=== PATIENT | male | born 1980 | race Caucasian/White ===

== ENCOUNTER 2018-03-02 20:19 | Outpatient (CLI) | payer MEDICAID | END 2018-03-02 20:20 | disposition EMS.NT | LOC: EMS 20:19 | PROVIDERS: ATTEND Surgery | DX: R45.89 Other symptoms and signs involving emotional state (principal) ==

== ENCOUNTER 2020-08-18 17:43 | Emergency (ER) | payer MEDICAID ==
--- OUTSIDE RECORDS SUMMARY | 2020-08-18 17:46 | EXTERNAL MEDICAL SUMMARY RPT | Continuity of Care Document ---
:1980 Demographics Phone Unavailable Preferred Language Amharic Marital Status Unknown Islam Affiliation Unknown Race Unknown Ethnic Group Unknown Author Organization [facility] Address [address] [phone] Phone Care Team Providers Name Role Phone Rambo Unavailable Unavailable Horras Unavailable Unavailable Medications date description facility 20200702 gabapentin 800 MG Oral Tablet [facility] ospital 20200702 gabapentin 100 MG Oral Capsule [facility] [id number] gabapentin 300 MG Oral Capsule [facility] 20200527 Prednisone 10 MG Oral Tablet [facility] spital Problems date description facility 20200702 Post-traumatic stress disorder, unspeci fied [facility] 20200702 Other specified anxiety disorders [facility] 20200702 Low back pain [facility] Procedures date description facility 20200702 [facility] 20200630 [facility] [id number] [facility] Vital Signs date measurement value source 20200527 weight_standard 269.98 lb 20200527 weight_metric 122.46 kg 20200527 temperature_standard 98.5 F 20200527 temperature_metric 36.94 C [id number] respiration_rate 16 /min [id number] height_standard 73 in [id number] height_metric 185.42 cm [id number] heart_rate 74 /min [id number] BP_systolic 133 mm[Hg] 80665980 BP_diastolic 87 mm[Hg] [id number] BMI 35.6 kg/m2 20200702 weight_standard 129.05 lb 20200702 weight_metric 58.53 kg 20200702 temperature_standard 98 F 20200702 temperature_metric 36.67 C 20200702 respiration_rate 16 /min 20200702 height_standard 73 in 20200702 height_metric 185.42 cm 20200702 heart_rate 75 /min 20200702 BP_systolic 120 mm[Hg] 76412375 BP_diastolic 64 mm[Hg] 20200702 BMI 37.5 kg/m2
--- NOTE | 2020-08-18 18:48 | ED Physician Documentation ---
PD HPI NVD - Stated complaint Stated Complaint: BLOODY STOOL/BODY ACHES/CHILLS - Chief complaint Chief Complaint: General - History obtained from History obtained from: Patient - History of Present Illness Timing - onset: How many days ago (2) Timing - duration: Days (2) Timing - details: Gradual onset, Still present Associated symptoms: Loss of appetite, Other (dark tarry stool) Contributing factors: Sick contact, Bad food. No: Recent antibiotics, Alcohol use Improved by: Vomiting Similar symptoms before: Diagnosis (food poisoning) Recently seen: Not recently seen - Additonal information Additional information: 40-year-old male who is on disability for back injury has developed nausea vomiting and diarrhea and has had some black tarry stool out today. When he called the nurse hotline asked him to come to the emergency department. He states that his entire family became ill after eating [place] food 2 nights ago and he became ill the day after and has had 2 days of vomiting and diarrhea. He indicates that prior to this he developed a sore throat with swelling in the back of his throat he continues to have a sore throat has not had fever he does have some muscle aches and pains and he is not immunized against Covid. He states that he stays mostly at home does not believe he has been exposed. He has not had fever. He does have a history of tonsillitis recurrent and following tonsillectomy he had tonsil tissue grow back. Review of Systems Constitutional: reports: Chills, Myalgias, Fatigue. denies: Fever Eyes: denies: Decreased vision Ears: denies: Ear pain Nose: reports: Congestion. denies: Rhinorrhea / runny nose Throat: reports: Sore throat Cardiac: denies: Chest pain / pressure, Palpitations Respiratory: denies: Dyspnea, Cough GI: reports: Abdominal Pain, Nausea, Vomiting, Constipation, Bloody / black stool : denies: Dysuria, Frequency Skin: denies: Rash Musculoskeletal: denies: Neck pain, Back pain, Extremity pain Neurologic: denies: Generalized weakness, Focal weakness, Numbness PD PAST MEDICAL HISTORY - Present Medications Home Medications: Ambulatory Orders Medication Instructions Recorded Confirmed Amox/Clav 875/125 [Augmentin] 1 each PO Q12H #20 tablet 08/18/20 Gabapentin [Neurontin] 300 mg ORAL TID 08/18/20 08/18/20 Ondansetron Odt [Zofran] 4 mg TL Q6H PRN #10 tablet 08/18/20 - Allergies Allergies/Adverse Reactions: Allergies Allergy/AdvReac Type Severity Reaction Status Date / Time No Known Drug Allergies Allergy Verified 08/18/20 17:53 PD ED PE NORMAL - Vitals Vital signs reviewed: Yes (Hypertensive) - General General: Alert and oriented X 3, No acute distress, Well developed/nourished - HEENT HEENT: Atraumatic, PERRL, EOMI, Ears normal, Other (The pharynx shows residual tonsil tissue with crypts with exudate worse on the right than the left and there are pustules over the posterior pharynx with a similar appearance to the tonsillar tissue. 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, No motor deficit, No sensory deficit, Normal speech Eye Opening: Spontaneous Motor: Obeys Commands Verbal: Oriented GCS Score: 15 - Psych Psych: Normal mood, Normal affect Results - Vitals Vitals: Vital Signs - 24 hr 08/18/20 08/18/20 17:54 18:47 Temperature 37.4 C Heart Rate 96 94 Respiratory 18 Rate Blood Pressure 156/76 H 156/101 H O2 Saturation 94 95 Oxygen O2 Source Room air - Labs Labs: Laboratory Tests 08/18/20 08/18/20 08/18/20 18:30 18:50 18:53 WBC 13.6 H RBC 5.10 Hgb 15.3 Hct 45.3 MCV 88.8 MCH 30.0 MCHC 33.8 RDW 12.4 Plt Count 241 MPV 10.7 Neut # (Auto) 10.4 H Lymph # (Auto) 1.5 Comal # (Auto) 1.5 H Eos # (Auto) 0.0 Baso # (Auto) 0.1 Absolute Nucleated RBC 0.00 Band Neuts % (Manual) Not Reportable Abnorm Lymph % (Manual) Not Reportable Nucleated RBC % 0.0 Neutrophils # (Manual) Not Reportable Lymphocytes # (Manual) Not Reportable Monocytes # (Manual) Not Reportable Eosinophils # (Manual) Not Reportable Basophils # (Manual) Not Reportable Differential Comment MANUAL=AUTO DIFF Manual Slide Review Indicated Platelet Estimate NORMAL (130-450,000) Platelet Morphology NORMAL APPEARANCE RBC Morph Micro Appear NORMAL APPEARANCE Sodium Potassium Chloride Carbon Dioxide Anion Gap BUN Creatinine Estimated GFR (MDRD) Glucose Calcium Total Bilirubin AST ALT Alkaline Phosphatase Total Protein Albumin Globulin Albumin/Globulin Ratio Lipase Stl Occult Blood (IFOB) NEGATIVE Group A Strep Rapid Negative 08/18/20 18:53 WBC RBC Hgb Hct MCV MCH MCHC RDW Plt Count MPV Neut # (Auto) Lymph # (Auto) [place] # (Auto) Eos # (Auto) Baso # (Auto) Absolute Nucleated RBC Band Neuts % (Manual) Abnorm Lymph % (Manual) Nucleated RBC % Neutrophils # (Manual) Lymphocytes # (Manual) Monocytes # (Manual) Eosinophils # (Manual) Basophils # (Manual) Differential Comment Manual Slide Review Platelet Estimate Platelet Morphology RBC Morph Micro Appear Sodium 136 Potassium 3.5 Chloride 99 L Carbon Dioxide 26 Anion Gap 11.0 BUN 12 Creatinine 0.9 Estimated GFR (MDRD) 94 Glucose 133 H Calcium 9.0 Total Bilirubin 1.0 AST 17 ALT 26 Alkaline Phosphatase 72 Total Protein 7.8 Albumin 4.5 Globulin 3.3 Albumin/Globulin Ratio 1.4 Lipase 24 Stl Occult Blood (IFOB) Group A Strep Rapid Procedures - IVC sono (time) 1845 Bedside IVC sono: IVC measures (cm) (1.45), IVC collapsed c insp (cm) (0.85), Euvolemia PD MEDICAL DECISION MAKING - ED course Complexity details: reviewed results, re-evaluated patient, considered differential, d/w patient ED course: 40-year-old male on disability for back injury has developed acute nausea vomiting and diarrhea with dark tarry stool and is evaluated here in the emergency department to include blood work and a fit test. In addition to this GI complaint the patient also has a sore throat and he has extensive experience with prior tonsillitis. He has had his tonsils out at age 12 and had tonsil tissue grow back. He has not had such a problem with his tonsils recently but today has exudative tonsillar tissue that is cryptic.He is tested for both strep and Covid. Rapid strep is negative Covid is pending and the patient's electrolytes and blood counts are unremarkable with the exception of a white count of 13.6 thousand. He does have acute tonsillitis has had experience with this previously we will place on a short course of Augmentin. Departure - Departure Disposition: 01 Home, Self Care Clinical Impression: Gastroenteritis, Tonsillitis with exudate Condition: Stable Instructions: ED Gastroenteritis Vs Food Poison, ED Tonsillitis Follow-Up: Your, doctor [Other] Prescriptions: Amox/Clav 875/125 [Augmentin] 1 each PO Q12H #20 tablet Ondansetron Odt [Zofran] 4 mg TL Q6H PRN #10 tablet PRN Reason: Nausea / Vomiting
--- OUTSIDE RECORDS SUMMARY | 2020-08-18 18:56 | EXTERNAL MEDICAL SUMMARY RPT | Continuity of Care Document ---
:1980 Demographics Phone Unavailable Preferred Language Urdu Marital Status Unknown Hinduism Affiliation Unknown Race Unknown Ethnic Group Unknown Author Organization [place] Address [address] [phone] Phone Care Team Providers Name Role Phone Rambo Unavailable Unavailable Horras Unavailable Unavailable Medications date description facility 20200702 gabapentin 800 MG Oral Tablet [facility] ospital 20200702 gabapentin 100 MG Oral Capsule [facility] [id number] gabapentin 300 MG Oral Capsule [facility] 20200527 Prednisone 10 MG Oral Tablet [facility] spital Problems date description facility 20200702 Post-traumatic stress disorder, unspeci fied [facility] 20200702 Other specified anxiety disorders [facility] 20200702 Low back pain [facility] Procedures date description facility 20200702 [facility] 20200630 [facility] [id number] [facility] Vital Signs date measurement value source 20200527 weight_standard 269.98 lb 20200527 weight_metric 122.46 kg 20200527 temperature_standard 98.5 F 20200527 temperature_metric 36.94 C 10483334 respiration_rate 16 /min 16457252 height_standard 73 in [id number] height_metric 185.42 cm 78690717 heart_rate 74 /min 34912675 BP_systolic 133 mm[Hg] 53031636 BP_diastolic 87 mm[Hg] 11457237 BMI 35.6 kg/m2 20200702 weight_standard 129.05 lb 20200702 weight_metric 58.53 kg 20200702 temperature_standard 98 F 20200702 temperature_metric 36.67 C 20200702 respiration_rate 16 /min 20200702 height_standard 73 in 20200702 height_metric 185.42 cm 20200702 heart_rate 75 /min 20200702 BP_systolic 120 mm[Hg] 52277638 BP_diastolic 64 mm[Hg] 20200702 BMI 37.5 kg/m2
[2020-08-18 19:00] LABS: BASOPHILS # (AUTO) 0.1 10^3/uL (0.0-0.1); BASOPHILS % (AUTO) 0.4 %; EOSINOPHILS % (AUTO) 0.1 %; HCT - HEMATOCRIT 45.3 % (42.0-52.0); HGB - HEMOGLOBIN 15.3 g/dL (14.0-18.0); LYMPHOCYTES # (AUTO) 1.5 10^3/uL (1.5-3.5); LYMPHOCYTES % (AUTO) 11.1 %; MEAN CORPUSCULAR HGB CONC 33.8 g/dL (32.0-36.0); MEAN CORPUSCULAR VOLUME 88.8 fL (80.0-94.0); MEAN PLATELET VOLUME 10.7 fL (7.4-11.4); MONOCYTES # (AUTO) 1.5 10^3/uL (0.0-1.0); MONOCYTES % (AUTO) 11.3 %; NEUTROPHILS # (AUTO) 10.4 10^3/uL (1.5-6.6); NEUTROPHILS % (AUTO) 76.8 %; PLT - PLATELET COUNT 241 10^3/uL (130-450); RED CELL DISTRIBUTION WIDTH 12.4 % (12.0-15.0); WHITE BLOOD COUNT 13.6 x10^3/uL (4.8-10.8)
[2020-08-18 19:01] LABS: FECAL OCCULT BLOOD (FIT) NEGATIVE (NEGATIVE)
[2020-08-18 19:05] LABS: SLIDE REVIEW? Indicated
[2020-08-18 19:10] LABS: ALBUMIN 4.5 g/dL (3.2-5.5); ALBUMIN/GLOBULIN RATIO 1.4 (1.0-2.2); CREATININE 0.9 mg/dL (0.6-1.2); POTASSIUM 3.5 mmol/L (3.5-5.0); TOTAL PROTEIN 7.8 g/dL (6.7-8.2)
[2020-08-18 19:14] LABS: RAPID STREP SCREEN Negative (Negative)
[2020-08-18 19:22] LABS: RBC MORPHOLOGY (MULTIPLE) NORMAL APPEARANCE (NORMAL)
[2020-08-18 19:23] LABS: DIFFERENTIAL COMMENT MANUAL=AUTO DIFF; PLATELET ESTIMATE, MANUAL NORMAL (130-450,000) (NORMAL); PLATELET MORPHOLOGY NORMAL APPEARANCE (NORMAL)
[2020-08-18 20:11] VITALS: BP 142/91
== END 2020-08-18 20:10 | disposition home or self-care (01) ==
LOC: ED 17:43
DX: K52.9 Noninfective gastroenteritis and colitis, unspecified (principal); J03.90 Acute tonsillitis, unspecified; Z20.822 Contact with and (suspected) exposure to COVID-19
CPT/HCPCS: 36415; 80053; 82274; 83690; 85025; 87070; 87430; 99283